=== PATIENT | female | born 1950 | race Caucasian/White ===

== ENCOUNTER 2023-02-25 05:34 | Inpatient (IN) | payer MEDICARE, OTHER ==
[~2023-02-25] VITALS: Ht 157.5 cm; Wt 55.8 kg
[2023-02-25] MEDS ORDERED: LIDOCAINE 2%-EPI 1:100,000 30 ML VIAL ONE (06:52)
[2023-02-25] MEDS ORDERED: ANESTHESIA TRAY IN PYXIS 1 EA TRAY MC ONE (06:53)
[2023-02-25] MEDS ORDERED: dexaMETHasone SOD PHOSPHATE 10 MG/ML VIAL ONE (06:53)
[2023-02-25] MEDS ORDERED: VANCOMYCIN 1 GM VIAL ONE (06:53)
[2023-02-25 06:57] VITALS: BP 160/70; TEMP 98.2; O2SAT 97
[2023-02-25 08:00] VITALS: BP 165/69; TEMP 97.5; O2SAT 98
[2023-02-25] MEDS ORDERED: ACETAMINOPHEN 325 MG TABLET PO PRN ×2 (10:00→10:30)
[2023-02-25] MEDS ORDERED: MORPHINE SULFATE INJ 2 MG/ML DISP.SYRIN IV PRN (10:00)
[2023-02-25] MEDS ORDERED: ONDANSETRON HCL/PF 4 MG/2 ML VIAL IVP PRN (10:00)
[2023-02-25] MEDS ORDERED: HYDROCODONE/APAP 10/325MG TABLET PO PRN (10:00)
[2023-02-25] MEDS ORDERED: IV NS 0.9% 1,000 ML IV PRN ×2 (10:00→10:30)
[2023-02-25] MEDS ORDERED: Z GUARD REMEDY 4 OZ OINT TP PRN (10:00)
[2023-02-25] MEDS ORDERED: MAGNESIUM HYDROXIDE 30 ML UDC PO PRN (10:00)
[2023-02-25] MEDS ORDERED: ZOLPIDEM TARTRATE 5 MG TABLET PO PRN (10:00)
[2023-02-25] MEDS ORDERED: MAG HYDROX/AL HYDROX/SIMETH 30 ML UDC PO PRN (10:00)
[2023-02-25] MEDS ORDERED: ONDANSETRON HCL/PF 4 MG/2 ML VIAL IV PRN (10:30)
[2023-02-25] MEDS ORDERED: HYDROMORPHONE 1 MG/1 ML DISP.SYRIN IV PRN (10:30)
[2023-02-25] MEDS ORDERED: CHOL100043 PO (11:00)
[2023-02-25] MEDS ORDERED: AMLO5TAB4 PO (11:00)
[2023-02-25] MEDS ORDERED: METO50TA16 PO (11:00)
[2023-02-25] MEDS ORDERED: CETI-90 PO (11:00)
[2023-02-25] MEDS ORDERED: GLUC-236 PO (11:00)
[2023-02-25] MEDS ORDERED: ICOS1CAP PO (11:00)
[2023-02-25] MEDS ORDERED: METO-357 PO (11:01)
[2023-02-25 16:00] VITALS: BP 119/61; TEMP 98.2; O2SAT 94
[2023-02-25] MEDS: VANCOMYCIN 1 GM in IV D5W 250ml IV SCH (18:30)
[2023-02-25 20:00] VITALS: BP 118/65; TEMP 97.7; O2SAT 94
[2023-02-26] MEDS: VANCOMYCIN 1 GM in IV D5W 250ml IV SCH (06:40)
[2023-02-26 07:38] LABS: BASOPHILS % (AUTO) 0.1 % (0.0-2.0); HEMATOCRIT 34 % (33-45); HEMOGLOBIN 11.4 g/dL (11.5-14.8); LYMPHOCYTES # (AUTO) 1.4 K/uL (0.8-4.8); LYMPHOCYTES % (AUTO) 16.7 % (20.0-44.0); MEAN CORPUSCULAR HEMOGLOBIN 31 PG (26.0-33.0); MEAN CORPUSCULAR HGB CONC 34 g/dl (31.0-36.0); MEAN CORPUSCULAR VOLUME 92 fL (82-100); MONOCYTES # (AUTO) 0.5 K/uL (0.1-1.30); NEUTROPHILS # (AUTO) 6.4 K/uL (1.8-8.9); NEUTROPHILS % (AUTO) 77.2 % (43.0-81.0); PLATELET COUNT (AUTO) 157 K/uL (150-450); RED CELL DISTRIBUTION WIDTH 13.2 % (11.5-15.0); WHITE BLOOD COUNT (AUTO) 8.3 K/uL (4.3-11.0)
[2023-02-26 08:00] VITALS: BP 111/57; TEMP 98.2; O2SAT 95
[2023-02-26 08:02] LABS: CALCIUM, SERUM 8.6 mg/dL (8.5-10.1); CARBON DIOXIDE 26 mmol/L (21-32); CHLORIDE 108 mmol/L (98-107); CREATININE 0.6 mg/dL (0.6-1.3); GLUCOSE 117 mg/dL (74-106); MAGNESIUM 1.9 mg/dL (1.8-2.4); PHOSPHORUS 3.8 mg/dL (2.5-4.9); POTASSIUM 4.2 mmol/L (3.5-5.1); SODIUM SERUM 141 mmol/L (136-145); UREA NITROGEN, BLOOD 14 mg/dL (7-18)
[2023-02-26] MEDS ORDERED: ACET325T53 PO (12:29)
[2023-02-26] MEDS ORDERED: HYDR-3980 PO (12:29)
== END 2023-02-26 13:00 | disposition home or self-care (01) | DRG 517 ==
LOC: DS 05:34 → MED 05:39
PROVIDERS: ADMIT Nurse Practitioner Acute Care; ATTEND Nurse Practitioner Acute Care
PROC: 0NBT0ZZ Excision of Right Mandible, Open Approach (ICD-10-PCS; principal; 2023-02-25)
PROC: 0NSR04Z Reposition Maxilla with Internal Fixation Device, Open Approach (ICD-10-PCS; 2023-02-25)
PROC: 0NST04Z Reposition Right Mandible with Internal Fixation Device, Open Approach (ICD-10-PCS; 2023-02-25)
PROC: 0NUT07Z Supplement Right Mandible with Autologous Tissue Substitute, Open Approach (ICD-10-PCS; 2023-02-25)
PROC: 0NBR0ZZ Excision of Maxilla, Open Approach (ICD-10-PCS; 2023-02-25)
PROC: 0NUR07Z Supplement Maxilla with Autologous Tissue Substitute, Open Approach (ICD-10-PCS; 2023-02-25)
DX: M84.48XA Pathological fracture, other site, initial encounter for fracture (principal); M27.2 Inflammatory conditions of jaws; I10 Essential (primary) hypertension; Z88.0 Allergy status to penicillin; M27.40 Unspecified cyst of jaw; D16.5 Benign neoplasm of lower jaw bone
CPT/HCPCS: 36415; 80048-TC; 83735-TC; 84100-TC; 85025-TC; 87081-TC; A4217; A4223; C1713; G0378; J0330; J1100; J2370; J2704; J3370; J3490; J7030; J7060

== ENCOUNTER 2023-07-29 09:48 | Inpatient (IN) | payer MEDICARE, OTHER ==
[~2023-07-29] VITALS: Ht 157.5 cm; Wt 53.1 kg
[2023-07-29] VITALS (8 sets, daily range): BP systolic 117–165; BP diastolic 67–85; TEMP 97.5–98.6; O2SAT 95–99
[~2023-07-29 09:48] MED LIST: ACET325T53 PO; AMLO5TAB4 PO; CETI-90 PO; CHOL100043 PO; FENTANYL PF 250MCG/5ML AMPUL ONE; GLUC-236 PO; HYDR-3980 PO; ICOS1CAP PO; METO-357 PO; ROCURONIUM BROMIDE 50 MG/5 ML ONE
[2023-07-29] MEDS ORDERED: LIDOCAINE 2%-EPI 1:100,000 30 ML VIAL ONE (10:55)
[2023-07-29] MEDS ORDERED: dexaMETHasone SOD PHOSPHATE 2 ML ONE (10:55)
[2023-07-29] MEDS ORDERED: VANCOMYCIN 1 GM VIAL ONE (10:55)
[2023-07-29] MEDS ORDERED: ZINC50TA69 PO (11:07)
[2023-07-29] MEDS ORDERED: ATOR20TA PO (11:07)
[2023-07-29] MEDS ORDERED: VALS80TA2 PO (11:07)
[2023-07-29] MEDS ORDERED: MECL-159 PO (11:07)
[2023-07-29] MEDS ORDERED: ASCO100058 PO (11:07)
[2023-07-29] MEDS ORDERED: CLON0.1T PO (11:07)
[2023-07-29] MEDS ORDERED: HYDROMORPHONE 1 MG/1 ML DISP.SYRIN IV PRN (14:00)
[2023-07-29] MEDS ORDERED: ONDANSETRON HCL/PF 4 MG/2 ML VIAL IVP PRN (14:00)
[2023-07-29] MEDS: IV NS 0.9% 1,000 ML IV PRN (14:10)
[2023-07-29] MEDS: ACETAMINOPHEN 325 MG TABLET PO PRN (17:41)
[2023-07-29] MEDS ORDERED: METOPROLOL SUCCINATE 50 MG TAB.SR.24H PO SCH (18:00)
[2023-07-29] MEDS: METOPROLOL SUCCINATE 50 MG TAB.SR.24H PO SCH (18:03)
[2023-07-29] MEDS: VANCOMYCIN 1 GM in IV D5W 250ml IV SCH (21:04)
[2023-07-29] MEDS ORDERED: CLONIDINE HCL 0.1 MG TABLET PO PRN (23:00)
[2023-07-30 08:00] VITALS: BP 125/66; TEMP 98.6; O2SAT 96
[2023-07-30] MEDS ORDERED: METOPROLOL SUCCINATE 50 MG TAB.SR.24H PO SCH (09:00)
[2023-07-30] MEDS ORDERED: CLONIDINE HCL 0.1 MG TABLET PO SCH (09:00)
[2023-07-30 10:10] VITALS: BP 128/66
[2023-07-30] MEDS: VALSARTAN 80 MG TABLET PO SCH (10:10)
== END 2023-07-30 16:57 | disposition home or self-care (01) | DRG 496 ==
LOC: DS 09:48 → MED 09:50
PROVIDERS: ADMIT Internal Medicine; ATTEND Internal Medicine
PROC: 0NPW04Z Removal of Internal Fixation Device from Facial Bone, Open Approach (ICD-10-PCS; principal; 2023-07-29)
PROC: 0NSR04Z Reposition Maxilla with Internal Fixation Device, Open Approach (ICD-10-PCS; 2023-07-29)
PROC: 0NUR07Z Supplement Maxilla with Autologous Tissue Substitute, Open Approach (ICD-10-PCS; 2023-07-29)
PROC: 0NBR0ZX Excision of Maxilla, Open Approach, Diagnostic (ICD-10-PCS; 2023-07-29)
PROC: 0NBT0ZX Excision of Right Mandible, Open Approach, Diagnostic (ICD-10-PCS; 2023-07-29)
DX: T84.69XA Infection and inflammatory reaction due to internal fixation device of other site, initial encounter (principal); S02.40DK Maxillary fracture, left side, subsequent encounter for fracture with nonunion; S02.609K Fracture of mandible, unspecified, subsequent encounter for fracture with nonunion; Z88.1 Allergy status to other antibiotic agents; Z88.0 Allergy status to penicillin; I50.9 Heart failure, unspecified; I11.0 Hypertensive heart disease with heart failure; I34.0 Nonrheumatic mitral (valve) insufficiency; Z79.899 Other long term (current) drug therapy; X58.XXXD Exposure to other specified factors, subsequent encounter; Y83.8 Other surgical procedures as the cause of abnormal reaction of the patient, or of later complication, without mention of misadventure at the time of the procedure; Y92.009 Unspecified place in unspecified non-institutional (private) residence as the place of occurrence of the external cause; K13.70 Unspecified lesions of oral mucosa
CPT/HCPCS: 87081-TC; 88305-TC; A4223; C1713; C1781; G0378; J0461; J0690; J1100; J2704; J3010; J3370; J3490; J7030; J7060